=== PATIENT | female | born 1975 | race Caucasian/White ===

== ENCOUNTER → 2023-02-22 | Outpatient (REF) | payer OTHER | LOC: M LAB REF 12:04 | PROVIDERS: ATTEND Student in an Organized Health Care Education/Training Program | DX: M54.50 Low back pain, unspecified (principal) ==

== ENCOUNTER → 2023-08-15 | Outpatient (CLI) | payer OTHER ==
[2023-08-15 16:57] LABS: HEMATOCRIT 51.5 % (36.0-47.0); HEMOGLOBIN 17.1 g/dl (12.0-15.5); MEAN CORPUSCULAR HEMOGLOBIN 31.4 pg (27.0-33.0); MEAN CORPUSCULAR HGB CONC 33.2 g/dl (32.0-36.5); MEAN CORPUSCULAR VOLUME 94.7 fl (80.0-96.0); PLATELET COUNT, AUTOMATED 222 10^3/uL (150-450); RED BLOOD COUNT 5.44 10^6/uL (4.00-5.40); WHITE BLOOD COUNT 4.1 10^3/uL (4.0-10.0)
[2023-08-15 17:10] LABS: ALBUMIN 3.3 G/DL (3.2-5.2); BILIRUBIN,TOTAL 0.3 MG/DL (0.3-1.2); CALCIUM LEVEL 8.7 MG/DL (8.5-10.1); CREATININE FOR GFR 1.19 MG/DL (0.55-1.30); GLOMERULAR FILTRATION RATE 51.3 (>58); POTASSIUM SERUM 3.9 MMOL/L (3.5-5.1); TOTAL PROTEIN 6.9 G/DL (5.7-8.2)
== END ==
LOC: M WUC 11:33
PROVIDERS: ATTEND Student in an Organized Health Care Education/Training Program
DX: R11.0 Nausea (principal)

== ENCOUNTER → 2023-08-22 | Outpatient (REF) | payer OTHER | LOC: M LAB REF 10:46 | PROVIDERS: ATTEND Nurse Practitioner Adult Health | DX: R19.7 Diarrhea, unspecified (principal) ==

== ENCOUNTER 2024-07-12 07:25 | Emergency (ER) | payer OTHER ==
[~2024-07-12] VITALS: Ht 170.2 cm; Wt 100.2 kg
[2024-07-12] MEDS ORDERED: ROPI1TAB73 (07:41)
[2024-07-12] MEDS ORDERED: DULO1CAP6 (07:41)
[2024-07-12] MEDS ORDERED: PRED20TA (07:41)
[2024-07-12] MEDS ORDERED: LEVOTAB10 (07:41)
[2024-07-12] MEDS ORDERED: HYDR12CA (07:41)
[2024-07-12] MEDS ORDERED: OMEP40CA5 (07:41)
[2024-07-12] MEDS ORDERED: BUSP10TA (07:41)
[2024-07-12] MEDS ORDERED: MACR100C43 (07:41)
[2024-07-12] MEDS ORDERED: MELO15TA28 (07:41)
[2024-07-12] MEDS ORDERED: ENAL1TAB50 (07:41)
[2024-07-12 09:56] LABS: BASO % 0.6 % (0.0-1.0); EOS # 0.1 10^3/uL (0.0-0.5); EOS % 1.6 % (0.0-3.0); HEMOGLOBIN 14.6 g/dl (12.0-15.5); LYMPH # 2.5 10^3/uL (1.5-5.0); LYMPH % 36.5 % (24.0-44.0); MEAN CORPUSCULAR HEMOGLOBIN 31.3 pg (27.0-33.0); MEAN CORPUSCULAR VOLUME 92.3 fl (80.0-96.0); MONO # 0.4 10^3/uL (0.0-0.8); MONO % 6.2 % (2.0-8.0); NEUTROPHILS # 3.7 10^3/uL (1.5-8.5); NEUTROPHILS % 54.7 % (36.0-66.0); PLATELET COUNT, AUTOMATED 235 10^3/uL (150-450); RED BLOOD COUNT 4.66 10^6/uL (4.00-5.40); WHITE BLOOD COUNT 6.8 10^3/uL (4.0-10.0)
[2024-07-12] MEDS: NS 1,000 ML IV ONE (09:58)
[2024-07-12] MEDS: ONDANSETRON 4MG 2ML VIAL IV ONE (09:59)
[2024-07-12] MEDS: MORPHINE 2 MG/ML 1ML VIAL IV ONE ×2 (10:00→19:37)
[2024-07-12 10:20] LABS: C REACTIVE PROTEIN QUANTITATIV < 0.40 MG/DL (<1.0); LIPASE 42 U/L (12-53)
[2024-07-12 10:22] LABS: ALBUMIN 3.4 G/DL (3.2-5.2); ALKALINE PHOSPHATASE 100 U/L (46-116); ALT/SGPT 20 U/L (7.0-40); AST/SGOT 11 U/L (<34); BILIRUBIN,DIRECT < 0.1 MG/DL (<0.4); BILIRUBIN,TOTAL 0.5 MG/DL (0.3-1.2); BLOOD UREA NITROGEN 21 MG/DL (9-23); CALCIUM LEVEL 9.5 MG/DL (8.5-10.1); CARBON DIOXIDE LEVEL 26 MMOL/L (20-31); CHLORIDE LEVEL 110 MMOL/L (98-107); CREATININE FOR GFR 0.74 MG/DL (0.55-1.30); GLOMERULAR FILTRATION RATE > 60.0 (>51); GLUCOSE, FASTING 84 MG/DL (60-100); POTASSIUM SERUM 3.9 MMOL/L (3.5-5.1); SODIUM LEVEL 140 MMOL/L (136-145); TOTAL PROTEIN 6.4 G/DL (5.7-8.2)
[2024-07-12 10:29] LABS: PROCALCITONIN <0.04 ng/ml
[2024-07-12 11:18] LABS: ERYTHROCYTE SEDIMENTATION RATE 14 mm/hr (0-30)
[2024-07-12] MEDS ORDERED: PROHANCE 279.3MG/ML 5ML VIAL As Ordered ONE (18:44)
[2024-07-12] MEDS ORDERED: PROHANCE 279.3MG/ML 15ML VIAL As Ordered ONE (18:44)
[2024-07-12] MEDS ORDERED: TRAM50TA2 PO (21:07)
[2024-07-12] MEDS: traMADol 50 MG TAB (HOME DOSE PACK) PO ONE (21:50)
[2024-07-12 21:57] VITALS: BP 116/54; TEMP 97.3; O2SAT 97
== END 2024-07-12 21:59 | disposition home or self-care (01) ==
LOC: M ED 07:25
DX: S24.0XXA Concussion and edema of thoracic spinal cord, initial encounter (principal); R10.12 Left upper quadrant pain; K57.30 Diverticulosis of large intestine without perforation or abscess without bleeding; M51.34 Other intervertebral disc degeneration, thoracic region; K59.00 Constipation, unspecified; M51.36 Other intervertebral disc degeneration, lumbar region; K21.9 Gastro-esophageal reflux disease without esophagitis; I10 Essential (primary) hypertension; F17.200 Nicotine dependence, unspecified, uncomplicated; F12.10 Cannabis abuse, uncomplicated; Z88.0 Allergy status to penicillin; Z88.1 Allergy status to other antibiotic agents; Z88.2 Allergy status to sulfonamides; Z79.52 Long term (current) use of systemic steroids; Z79.899 Other long term (current) drug therapy; Y92.9 Unspecified place or not applicable; Y93.89 Activity, other specified; Y99.9 Unspecified external cause status
CPT/HCPCS: 72146; 72147; 72148; 74176; 80048; 80076; 81001; 83690; 84145; 85025; 85652; 86140; 96374; 96375; 96376; 99284; A9576; J2405

== ENCOUNTER → 2024-10-30 | Outpatient (REF) | payer OTHER ==
[~2024-10-30] MED LIST: BUSP10TA; DULO1CAP6; ENAL1TAB50; HYDR12CA; LEVOTAB10; MACR100C43; MELO15TA28; OMEP40CA5; PRED20TA; ROPI1TAB73; TRAM50TA2 PO
[2024-10-30 17:11] LABS: RSV AMPLIFICATION NEGATIVE (NEGATIVE)
== END ==
LOC: M LAB REF 16:12
PROVIDERS: ATTEND Nurse Practitioner Adult Health
DX: J02.9 Acute pharyngitis, unspecified (principal)

== ENCOUNTER → 2025-08-22 | Outpatient (CLI) | payer OTHER ==
[~2025-08-22] MED LIST changes: +HYDR12.510; -HYDR12CA; +ISOVUE-370 76% 100 ML VIAL As Ordered ONE
== END ==
LOC: M RAD 08:17
PROVIDERS: ATTEND Nurse Practitioner Adult Health
DX: R10.32 Left lower quadrant pain (principal)
CPT/HCPCS: 74177; Q9967